=== PATIENT | female | born 1940 | race Caucasian/White ===

== ENCOUNTER 2016-05-08 11:44 | Day surgery (SDC) | payer MEDICARE ==
[~2016-05-08] VITALS: Ht 165.1 cm; Wt 72.1 kg
[~2016-05-08 11:44] MED LIST: 0.9% Sodium Chloride 1,000 ML IV SCH; CALC600T12 PO; CHOL10008 PO; DICL100G8 TOPICAL; MULT-1018 PO; OMEG-38 PO; fentaNYL-PF 50 mCg/mL 2 mL Inj IVPUSH PRN
[2016-05-08] MEDS ORDERED: Lidocaine Topical 2% 30 mL Jelly ONE (12:26)
[2016-05-08 13:21] VITALS: BP 141/86; PULSE 70; RESP 14; O2SAT 97
[2016-05-08 15:34] VITALS: BP 154/65; PULSE 72; RESP 16; O2SAT 93
[2016-05-08 15:45] VITALS: BP 133/71; PULSE 66; RESP 16; O2SAT 94
--- NOTE | 2016-05-08 16:53 | ENDO ---
[address] [address] ENDOSCOPY PROCEDURE PATIENT: KELLY DING : 1940 MR#: [id number] ADMIT: 05/08/2016 JOB ID: [id number] DATE: 05/08/2016 PREPROCEDURE DIAGNOSES: 1. Gastroesophageal reflux disease. 2. Hiatal hernia. POSTPROCEDURE DIAGNOSIS: 1. Gastroesophageal reflux disease. 2. Hiatal hernia. PROCEDURE PERFORMED: 1. Upper endoscopy with biopsies. 2. Caldera probe placement was attempted but failed. SURGEON: Amberly Russo MD. INSTRUMENT: Olympus GIF H 180 J. MEDICATIONS: Versed 5 mg, fentanyl 100 mcg. FINDINGS: 1. LA grade A distal esophagitis status post biopsies of the GE junction at 37 cm. 2. Hiatal hernia with the GE junction at 37 cm and diaphragmatic hiatus at 39 cm. 3. Mild gastritis. 4. The lower esophageal sphincter pressure made it extremely difficult to insufflate the stomach as the patient would release all insufflated gas proximally. This resulted in a prolonged procedure time. 5. Caldera probe placement was attempted, however, the probe did not deploy correctly on the side wall of the esophagus. At the end of the procedure, the pH of the probe was found to be 1.7, consistent with the probe position in the stomach. DESCRIPTION OF PROCEDURE: The patient was brought to the procedure suite and placed in left lateral decubitus position. Moderate anesthesia was induced. A bite block was placed. The endoscope was advanced into the esophagus. The entire esophagus was normal with the exception of the GE junction which was at 37 cm and showed some mild esophagitis. Biopsies were performed x2. The diaphragmatic hiatus was measured at 39 cm. The stomach was entered and although attempts were made to insufflate it, it would not hold pressure and therefore the stomach could not be fully insufflated. Therefore, it took significant more time than usual to carefully examine all of the mucosa of the stomach. Ultimately, the pylorus was found, and the duodenum was entered. The duodenum was visualized to the third portion and was normal. The endoscope was withdrawn and retroflexion was performed. She had a Hill grade 3 flap valve and visualized hiatal hernia. No other abnormalities were seen. The endoscope was withdrawn. The Caldera probe was advanced to 31 cm. Suction was performed for greater than 30 seconds. The probe was deployed, and repeat endoscopy revealed absence of the probe from the side wall of the esophagus. The endoscope was advanced into the stomach. Due to the inability to insufflate the stomach as noted previously, the probe was not visualized. However, the pH was found to be 1.7, and therefore, the probe was presumed to be in the stomach. The procedure was then completed. SPECIMENS: Distal esophageal biopsy at 37 cm. COMPLICATIONS: None. ESTIMATED BLOOD LOSS: 10 mL.
--- NOTE | 2016-05-14 11:24 | PATH ---
SURGICAL PATHOLOGY Attending Physician:Amberly Russo MD CASE STATUS: Signed Out PATIENT NAME: KELLY DING PID: [id number] : 1940 DATE COLLECTED:05/08/2016 00:00 SPECIMEN: Esophagus, Biopsy CLINICAL HISTORY: GERD, ESOPHAGITIS 1). DISTAL ESOPHAGUS BIOPSY FINAL DIAGNOSIS: 1.DISTAL ESOPHAGUS, BIOPSY: ESOPHAGEAL SQUAMOUS EPITHELIUM AND GASTRIC GLANDULAR MUCOSA WITH CHRONIC ACTIVE INFLAMMATION AND MUCOSAL ULCERATION. Alcian blue stain - Negative for intestinal metaplasia. No fungal organisms identified. No evidence of dysplasia or malignancy. ICD10 code K20.9 GROSS DESCRIPTION: Received in formalin, labeled with the patient' s name and "distal esoph BX", are two fragments of blake, soft tissue ranging in size from 0.1 x 0.1 x 0.1 cm to 0.2 x 0.2 x 0.2 cm. All fragments are totally submitted in one cassette. ([id number]) MICRO DESCRIPTION: This test was developed and its performance characteristics determined by [facility]. It has not been cleared or approved by the [place]. [place]. Food and Drug Administration. The FDA has determined that such clearance or approval is not necessary. This test is used for clinical purposes. It should not be regarded as investigational or for research. ICD-9 CODES: CPT CODES: 1: 85884, 18988 Electronically Signed Out Vin Enrique MD [facility] Pathology [facility] [address], [place] [address] Technical component performed at [facility], [facility] [address], [address]
== END 2016-05-08 23:59 | disposition home or self-care (01) ==
LOC: END 11:44
PROVIDERS: ATTEND Surgery
DX: K20.9 Esophagitis, unspecified (principal); K44.9 Diaphragmatic hernia without obstruction or gangrene; K21.9 Gastro-esophageal reflux disease without esophagitis
CPT/HCPCS: 43239; 88305; 88313; 91010; 91037; 99153; G0500; J2250; J3010; J7030